=== PATIENT | male | born 2000 | race Caucasian/White ===

== ENCOUNTER 2023-07-19 00:52 | Emergency (ER) | payer OTHER, SELFPAY ==
[2023-07-19] MEDS ORDERED: Ondansetron PF 4 MG/2 ML Vial ONE (00:58)
[2023-07-19 01:47] LABS: ALT (SGPT) 10 U/L (8-55); AST (SGOT) 14 U/L (5-34); Albumin 3.8 g/dL (3.5-5.0); Alkaline Phosphatase 79 U/L (40-110); Anion Gap 11 mmol/L (10-20); BUN (Urea Nitrogen) 13 mg/dL (8.9-20.6); Bilirubin, Total 0.2 mg/dL (0.2-1.2); Calc. Creatinine Clearance 0 mL/min (70-130); Calcium 7.7 mg/dL (7.8-10.44); Carbon Dioxide 23 mmol/L (22-29); Chloride 110 mmol/L (98-107); Estimated GFR 109; Globulin 2.5 g/dL (2.4-3.5); Glucose 117 mg/dL (70-105); Potassium 3.4 mmol/L (3.5-5.1); Protein, Total 6.3 g/dL (6.0-8.3); Sodium 141 mmol/L (136-145)
[2023-07-19 01:48] LABS: Acetaminophen Less than 10 mcg/mL (10.0-30.0); Alcohol 277.7 mg/dL (Less than 10); Salicylate Less than 8.0 mg/dL (15.0-30.0)
[2023-07-19 02:02] LABS: #Basophils 0.1 10x3/uL (0.0-0.2); #Eosinphils 0.2 10x3/uL (0.0-0.5); #Monocytes 0.6 10x3/uL (0.0-1.1); %Basophils 0.5 % (0.0-2.0); %Eosinophils 1.4 % (0.0-6.0); %Lymphocytes 39.2 % (18.0-47.0); %Monocytes 4.9 % (0.0-10.0); %Neutrophils 53.7 % (40.0-75.0); Hematocrit 37.3 % (38.8-50.0); Hemoglobin 12.2 g/dL (13.5-17.5); Mean Corpuscular HGB CONC 32.7 g/dL (32.0-36.0); Mean Corpuscular Hemoglobin 29.4 pg (27.0-33.0); Mean Corpuscular Volume 89.9 fl (81.2-95.1); Mean Platelet Volume 11.2 fl (7.4-10.4); Platelet Count 214 10x3/uL (150-450); RBC Distribution Width 13.3 % (11.5-14.5); Red Blood Cell (RBC) Count 4.15 10x6/uL (4.32-5.72); White Blood Cell (WBC) Count 11.1 10x3/uL (3.5-10.5)
== END 2023-07-19 04:55 | disposition home or self-care (01) ==
LOC: CSHERS 00:52
DX: F10.129 Alcohol abuse with intoxication, unspecified (principal)
CPT/HCPCS: 36416; 80053; 80307; 85025; 96361; 96374; J2405